=== PATIENT | male | born 1935 | race Caucasian/White ===

== ENCOUNTER 2017-12-06 12:05 | Outpatient (CLI) | payer MEDICARE, MEDICAID, SELFPAY ==
--- NOTE | 2017-12-06 10:09 | DI.RAD_ITS ---
SYMPTOM/DIAGNOSIS: RT HIP AND KNEE PAIN RIGHT HIP: No priors. In the right hip, there is mild joint space narrowing. There is mild periarticular spurring and subchondral sclerosis in the acetabulum and the femoral head. No acute fracture or dislocation is seen. Vascular calcifications are present in the soft tissues. In the left hip, note is made of joint space narrowing and osteophytes arising from the acetabulum and the femoral head. The symphysis pubis appears intact. IMPRESSION: Mild to moderate degenerative changes of the hips bilaterally. RIGHT KNEE: Three views. No priors. There is moderate narrowing of the medial femoral tibial joint space and mild narrowing of the patellofemoral joint. Periarticular spurring is seen involving all three joint compartments. 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 The bones are intact and normally mineralized. Vascular calcifications are seen in the soft tissues which are otherwise unremarkable. There is a small enthesophyte at the superior patella. IMPRESSION: Moderate degenerative changes of the right knee.
== END 2017-12-06 12:25 ==
PROVIDERS: PCP General Practice; Visit Provider Student in an Organized Health Care Education/Training Program
DX: M25.551 Pain in right hip (principal); M25.561 Pain in right knee; M16.0 Bilateral primary osteoarthritis of hip; M17.11 Unilateral primary osteoarthritis, right knee
CPT/HCPCS: 20610; 73562; 99203; 99214; 73502; J1040

== ENCOUNTER → 2018-01-17 09:41 | Outpatient (BNVA) | payer MEDICARE, MEDICAID, SELFPAY | PROVIDERS: PCP General Practice; Visit Provider Student in an Organized Health Care Education/Training Program | DX: M25.551 Pain in right hip (principal); M25.561 Pain in right knee; M17.11 Unilateral primary osteoarthritis, right knee; G56.02 Carpal tunnel syndrome, left upper limb | CPT/HCPCS: 99213; L3908 ==

== ENCOUNTER → 2018-03-14 08:31 | Outpatient (BNVA) | payer MEDICARE, MEDICAID, SELFPAY | PROVIDERS: PCP General Practice; Referring Provider General Practice; Visit Provider Student in an Organized Health Care Education/Training Program | DX: M25.551 Pain in right hip (principal); M25.561 Pain in right knee; M17.11 Unilateral primary osteoarthritis, right knee; M20.021 Boutonniere deformity of right finger(s); M16.0 Bilateral primary osteoarthritis of hip | CPT/HCPCS: 29130; 99214 ==

== ENCOUNTER 2018-05-10 01:39 | Outpatient (CLI) | payer MEDICARE, MEDICAID, SELFPAY ==
--- NOTE | 2018-05-10 10:20 | W.PROCNOTE ---
Date of service: 05/10/18 Time of Service: 10:20 Procedure Note Date of procedure: 05/10/18 Procedure: Right Hip Injection with Fluoroscopic Guidance Surgeon/Proceduralist/Physician: Sheldon Sinclair Procedure Diagnosis: Right Hip Osteoarthritis Procedure Indications: Guy has had persistent pain of the RIGHT hip and groin. Noninvasive measures have been tried. To serve as both diagnostic and therapeutic, an injection under fluoroscopy was recommended. He previously had a left hip injecgtion wtih excellent results. I had discussed the risks of the procedure and the patient elected to proceed. Procedure Description: Guy was greeted in the flouroscopy room. The correct side was identified and the consent was reviewed with the patient and signed. The patient was then placed in the supine position on the fluoroscopy table. The RIGHT hip was then prepped with Chloraprep. The anterolateral injection starting point was identiifed by bony landmarks and fluoroscopy. The skin and soft tissue in the tract of the injection was anesthetized with 1% Lidocaine. A spinal needle was then inserted deep into the hip joint at the level of the lateral femoral neck under fluoroscopic guidance. A small amount of Omnipaque solution was injected to confirm intraarticular placement. Once confirmed, the hip was injected with 6cc of 0.5% Bupivicaine and 80mg of Depo-Medrol. A bandaid was placed on the injection site. The patient tolerated the procedure well and noted improvement in pre-injection pain.
--- NOTE | 2018-05-10 10:40 | DI.RAD_ITS ---
SYMPTOM/DIAGNOSIS: RT HIP INJECTION, BILATERAL HIP JOINT ARTHRITIS M16.0 RIGHT HIP INJECTION: Fluoroscopy Time: 7.3 Fluoroscopy was utilized by Dr. Sniclair during the performance of a right hip injection. Please refer to the procedure report for complete details.
[2018-05-10] MEDS: Omnipaque 300 MG/ML 10 ML BTL IJ (11:23)
[2018-05-10] MEDS: Bupivacaine 0.5% Pres-Free 10 ML VIAL 6 ML IJ (11:25)
[2018-05-10] MEDS: methylPREDNISolone ACETATE 80 MG/ML VIAL IM (11:25)
== END 2018-05-10 01:59 ==
PROVIDERS: PCP General Practice; Visit Provider Student in an Organized Health Care Education/Training Program
DX: M25.551 Pain in right hip (principal); M16.0 Bilateral primary osteoarthritis of hip
CPT/HCPCS: 20610; 77002; J1040

== ENCOUNTER 2018-08-08 09:53 | Outpatient (CLI) | payer MEDICARE, MEDICAID, SELFPAY | END 2018-08-08 10:13 | PROVIDERS: PCP General Practice; Visit Provider Student in an Organized Health Care Education/Training Program | DX: M17.11 Unilateral primary osteoarthritis, right knee (principal); M16.0 Bilateral primary osteoarthritis of hip; M48.061 Spinal stenosis, lumbar region without neurogenic claudication; M51.36 Other intervertebral disc degeneration, lumbar region | CPT/HCPCS: 99214 ==

== ENCOUNTER 2018-08-08 10:08 | Outpatient (CLI) | payer MEDICARE, MEDICAID, SELFPAY ==
--- NOTE | 2018-08-08 10:06 | DI.RAD_ITS ---
SYMPTOMS/DIAGNOSIS: LT MESFIN PLANNING, EVAL LOW BACK PAIN, LIMITED MOTION, ? STENOSIS/DDD LEFT HIP: Single view. Comparison 12/06/17. There is mild narrowing of the left hip joint space. Osteophytes are seen arising from the acetabulum and the femoral head. The bones appear normally mineralized. Vascular calcifications are seen in the soft tissues. IMPRESSION: Osteoarthritis of the left hip. LUMBAR SPINE: AP and lateral views. There is straightening of the lumbar spine. There is disc space narrowing at L 4 - 5 and L 5 - S 1. Endplate osteophytes are present throughout the lumbar spine. There are degenerative changes of the facet joints most marked from L 3 - 4 through L 5 - S 1. No acute fractures or subluxations are seen. Vascular calcifications are present. 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
== END 2018-08-08 10:28 ==
PROVIDERS: PCP General Practice; Referring Provider General Practice; Visit Provider Student in an Organized Health Care Education/Training Program
DX: M16.12 Unilateral primary osteoarthritis, left hip (principal); M54.5 Low back pain; M51.16 Intervertebral disc disorders with radiculopathy, lumbar region; M17.11 Unilateral primary osteoarthritis, right knee; M16.0 Bilateral primary osteoarthritis of hip; M48.061 Spinal stenosis, lumbar region without neurogenic claudication; M51.36 Other intervertebral disc degeneration, lumbar region
CPT/HCPCS: 99214; 72100; 73501

== ENCOUNTER → 2019-01-07 08:09 | Outpatient (BNVA) | payer MEDICARE, MEDICAID, SELFPAY | PROVIDERS: PCP General Practice; Referring Provider General Practice; Visit Provider Student in an Organized Health Care Education/Training Program | DX: M16.12 Unilateral primary osteoarthritis, left hip (principal) | CPT/HCPCS: 99213 ==

== ENCOUNTER 2019-01-10 13:56 | Outpatient (CLI) | payer MEDICARE, MEDICAID, SELFPAY ==
[2019-01-10 14:25] LABS: Bilirubin Negative (Negative); Blood Trace-intact (Negative); Clarity Clear (Clear); Glucose Negative (Negative); Ketones Negative (Negative); Leukocyte Esterase Negative (Negative); Nitrite Negative (Negative); Urobilinogen 0.2 EU/dL (Up TO 0.2); pH 5.5 (5-8)
[2019-01-10 14:38] LABS: Bacteria Negative HPF (Negative); C & S Indicated? No; Crystals Negative HPF (Negative); Epithelial Cells Negative HPF (Negative); Mucus Negative (Negative); RBC 0-2 HPF (0-2); WBC Negative HPF (0-5)
[2019-01-10 15:41] LABS: Albumin 4.1 g/dL (3.4-5.0); Anion Gap 8.8 mmol/L (3-11); CO2 28.2 mmol/L (21.0-32.0); CREATININE 0.91 mg/dL (0.70-1.30); Chloride 104 mmol/L (98-107); Glucose 110 mg/dL (70-100); NT-proBNP 1667 pg/mL; Potassium 4.3 mmol/L (3.5-5.1); Sodium 141 mmol/L (136-145); TSH 2.22 uIU/mL (0.36-3.74)
== END 2019-01-10 14:16 ==
PROVIDERS: PCP General Practice; Visit Provider General Practice
DX: R60.0 Localized edema (principal); R35.0 Frequency of micturition; I50.9 Heart failure, unspecified
CPT/HCPCS: 36415; 80051; 82947; 81003; 81015; 82040; 82565; 83735; 83880; 84443

== ENCOUNTER 2019-01-30 00:53 | Outpatient (CLI) | payer MEDICARE, MEDICAID, SELFPAY ==
--- NOTE | 2019-01-30 14:00 | DI.US_ITS ---
APPROVED REPORT EXAM: Comprehensive 2D, Doppler, and color-flow Echocardiogram Patient Location: Out-Patient Vice President Of Recruiting: Gay Davila [facility] ([place]) Rhythm: Atrial Fibrillation Tachycardia Indications: new onset afib. i48.91 Conclusion Left Ventricle : The left ventricle is normal size. Borderline concentric left ventricular hypertroph y. Left ventricular systolic function is mildly decreased. The irregular rhythm makes wall motion ass essment difficult but there appears to be global hypokinesis of the left ventricle. LVEF is estimated to be 45-50%. Diastolic function is indeterminate. Right Ventricle : The right ventricle is normal size. The right ventricular systolic function is low normal. Atria : Left atrium is mildly dilated. Right atrium is moderately dilated. Aortic Valve : Aortic valve is trileaflet. The Aortic valve is sclerotic. Mild aortic regurgitation. There is no aortic valvular stenosis. Mitral Valve : Mitral valve leaflets are mildly thickened. No evidence of mitral valve stenosis. Mild mitral regurgitation. Tricuspid Valve : The tricuspid valve leaflets are thickened , but open well. Moderate tricuspid regu rgitation. Great Vessels : IVC is normal in size and collapses >50% with inspiration. Estimated RVSP is 26-30 m mHg. There is no prior echocardiogram available for comparison. Wall motion Left Ventricle The left ventricle is normal size. Left ventricular systolic function is mildly decreased. Borderline concentric left ventricular hypertrophy. The irregular rhythm makes wall motion assessment difficult but there appears to be global hypokinesis of the left ventricle. Diastolic function is indeterminat e. LVEF is estimated to be 45-50%. Right Ventricle The right ventricle is normal size. The right ventricular systolic function is low normal. Right vent ricle is mildly hypertrophied. Atria Left atrium is mildly dilated. Right atrium is moderately dilated. Aortic Valve Aortic valve is trileaflet. The Aortic valve is sclerotic. There is no aortic valvular stenosis. Mild aortic regurgitation. Mitral Valve Mitral valve leaflets are mildly thickened. No evidence of mitral valve stenosis. Mild mitral regurgi tation. Tricuspid Valve The tricuspid valve leaflets are thickened , but open well. Moderate tricuspid regurgitation. Pulmonic Valve Pulmonic valve is not well visualized. Mild pulmonic regurgitation. Great Vessels The aortic root is normal in size. The ascending aorta is mildly dilated (3.85cm). IVC is normal in s ize and collapses >50% with inspiration. Estimated RVSP is 26-30 mmHg. Pericardium There is no pericardial effusion. 2D Dimensions IVSd 1.10 cm M: 0.6-1.2 LV EDV A2C 74.30 mL PWd 1.15 cm M: 0.6 - 1.2 LV EDV A4C 51.30 mL LVDd 4.50 cm M: 4.2 - 5.8 LA Volume Index A2C 42.51 mL/m2 LVDs 3.60 cm M: 2.5 - 4.0 LA Volume Index A4C 40.84 mL/m2 Aortic Root 3.50 cm M: 3.1 - 3.7 LA Volume Index Biplane 42.95 mL/m2 RVID Base (AP4) 3.20 cm (M/F) 2.5-4.1 LA Area A4C 22.18 cm2 RA Area A4C 24.57 cm2 LA Area A2C 23.33 cm2 LVOT 2.00 cm (M/F) 1.5-2.5 EF AP4 50.68 % Ascending Aorta 3.85 cm M: 2.6 - 3.4 EF AP2 38.63 % LVEF (Teich) 40.80 % EF BP 44.18 % LVEF (Lyon's) 44.18 % M: 52 - 72 LV Volume 50.29 mL M: 62 - 150 LV Volume Index 27.33 mL/m2 M: 34 - 74 FS 19.80 % LV Diastology MED E' 0.08 (>0.07 m/s) LV E/e MED 12.50 (<14) LAT E' 0.09 (>0.1 m/s) LV E/e LAT 10.50 (<14) Aortic Valve LVOT Area 3.15 cm2 LVOT Peak Gerard. 0.70 m/s LVOT Mean Gerard. 0.55 m/s LVOT Peak Gr. 2.05 mmHg SANTOS Vmax Index 1.15 cm2/m2 LVOT Mean Gr. 1.30 mmHg LVOT VTI 0.15 m SANTOS Mean Gerard. Index 1.13 cm2/m2 AoV Peak Gerard. 1.07 (0.5-1.3 m/s) AoV Mean Gerard. 0.83 m/s AO Peak GR. 4.61 mmHg AO Mean GR. 2.92 (<5 mmHg) VTI Ratio 0.71 SANTOS (VTI) 2.23 (2.5-4.5 cm2) SANTOS (VTI) Index 1.20 cm/m2 Mitral Valve MV E Max Gerard. 0.94 (0.4-1.3 m/s) MV Decel. Time 121.70 (160-240 msec) MV PHT 35.31 msec MVA PHT 6.20 cm2 Tricuspid Valve TR P. Velocity 2.56 m/s TV Regurg Vmax 2.56 m/s RAP Estimate 3.00 mmHg RVSP 29.00 mmHg TR P. Gradient 26.10 mmHg
== END 2019-01-30 01:13 ==
PROVIDERS: PCP Nurse Practitioner Family; Visit Provider General Practice
DX: I48.91 Unspecified atrial fibrillation (principal); I50.9 Heart failure, unspecified; I50.1 Left ventricular failure, unspecified; R60.0 Localized edema; I51.7 Cardiomegaly
CPT/HCPCS: 93306

== ENCOUNTER 2019-02-07 11:56 | Outpatient (CLI) | payer MEDICARE, MEDICAID, SELFPAY ==
[2019-02-07 13:49] LABS: Anion Gap 7.9 mmol/L (3-11); BUN 23 mg/dL (7-18); CO2 31.1 mmol/L (21.0-32.0); CREATININE 1.09 mg/dL (0.70-1.30); Chloride 103 mmol/L (98-107); Potassium 4.6 mmol/L (3.5-5.1); Sodium 142 mmol/L (136-145)
== END 2019-02-07 12:16 ==
PROVIDERS: PCP General Practice; Visit Provider General Practice
DX: I50.9 Heart failure, unspecified (principal)
CPT/HCPCS: 36415; 80051; 84520; 82565

== ENCOUNTER 2019-04-02 12:57 | Outpatient (REF) | payer MEDICARE, MEDICAID, SELFPAY ==
--- NOTE | 2019-04-02 10:15 | PAPNONF_PTH ---
PATIENT: Siddharth Valle LOC: [facility]#:[id number] AGE/SX: 83/M ROOM: RE04/02/[address]: Maritza Vergara : 1935 BED: DIS: 04/02/2019 SPEC #: [id number] RECD: 04/03/19 12:28 STATUS: DEION REQ #: [id number] JAHAIRA: 04/02/19 10:[address]: Maritza Vergara DEPT: [facility] Cytology RECD BY: Amber Vasquez Tissues: 1 - BODY FLUID CYTO(SPUTUM/URINE)[facility] Procedures: BODY FLUID CYTO(URINE/SPUTUM) Comments: [id number] (TOTAL VOLUME = 70 ml's) (35 ml's URINE & 35 ml's CYTOLYT ADDED IN 2 CONTAINERS)
[2019-04-03 12:35] LABS: PSA, Screening 0.5 ng/mL (0.0-6.5)
== END 2019-04-02 13:17 ==
LOC: NCHCN 12:57
PROVIDERS: PCP Nurse Practitioner Family; Visit Provider Nurse Practitioner Family
DX: R31.9 Hematuria, unspecified (principal); R82.998 Other abnormal findings in urine; R32 Unspecified urinary incontinence; Z12.5 Encounter for screening for malignant neoplasm of prostate
CPT/HCPCS: 84153; 88104

== ENCOUNTER 2019-10-18 18:17 | Outpatient (REF) | payer MEDICARE, MEDICAID, SELFPAY ==
[2019-10-18 23:37] LABS: Anion Gap 10.8 mmol/L (3-11); BUN 14 mg/dL (7-18); CO2 27.2 mmol/L (21.0-32.0); CREATININE 0.99 mg/dL (0.70-1.30); Calcium 8.7 mg/dL (8.5-10.1); Chloride 101 mmol/L (98-107); Glucose 142 mg/dL (74-106); NT-proBNP 1306 pg/mL (<300); Potassium 4.2 mmol/L (3.5-5.1); Sodium 139 mmol/L (136-145)
== END 2019-10-18 18:37 ==
LOC: NCHCN 18:17
PROVIDERS: PCP Nurse Practitioner Family; Visit Provider Physician Assistant
DX: I50.9 Heart failure, unspecified (principal); I48.91 Unspecified atrial fibrillation
CPT/HCPCS: 80048; 85027; 83880

== ENCOUNTER 2020-12-08 18:52 | Outpatient (REF) | payer MEDICARE, MEDICAID, SELFPAY ==
[2020-12-08 18:15] LABS: HCT 40.2 % (40.0-50.0); HGB 13.1 g/dL (13.5-17.5); MCH 31.3 pg (27.0-33.0); MCHC 32.6 % (32.0-36.0); MCV 95.9 fL (80-95); MPV 9.1 fL (8.0-11.0); Platelet Count 212 10^3/uL (130-400); RBC 4.19 10^6/uL (4.36-5.78); RDW 12.5 % (11.8-14.1); RDW-SD 44.1 fL; WBC 6.92 10^3/uL (4.4-10.8)
[2020-12-08 18:34] LABS: Anion Gap 9.8 mmol/L (3-11); BUN 10 mg/dL (7-18); CO2 28.2 mmol/L (21.0-32.0); CREATININE 0.8 mg/dL (0.70-1.30); Calcium 8.6 mg/dL (8.5-10.1); Chloride 104 mmol/L (98-107); Glucose 137 mg/dL (74-106); Potassium 3.9 mmol/L (3.5-5.1); Sodium 142 mmol/L (136-145)
== END 2020-12-08 18:53 | disposition home or self-care (01) ==
LOC: NCHCN 18:52
PROVIDERS: PCP Nurse Practitioner Family; Visit Provider Physician Assistant
DX: I48.91 Unspecified atrial fibrillation (principal)
CPT/HCPCS: 80048; 85027

== ENCOUNTER 2022-01-31 13:50 | Outpatient (REF) | payer MEDICARE, MEDICAID, SELFPAY ==
[2022-01-31 14:59] LABS: HCT 40.2 % (40.0-50.0); MCH 30.4 pg (27.0-33.0); MCHC 32.3 % (32.0-36.0); MCV 94 fL (80-95); MPV 9.1 fL (8.0-11.0); Platelet Count 208 10^3/uL (130-400); RBC 4.27 10^6/uL (4.36-5.78); RDW 12.8 % (11.8-14.1); RDW-SD 44.5 fL; WBC 7.28 10^3/uL (4.4-10.8)
[2022-01-31 15:22] LABS: Anion Gap 11.7 mmol/L (3-11); BUN 15 mg/dL (7-18); CO2 25.3 mmol/L (21.0-32.0); CREATININE 0.8 mg/dL (0.70-1.30); Calcium 8.9 mg/dL (8.5-10.1); Calculated LDL 136 mg/dL (<100); Chloride 103 mmol/L (98-107); Cholesterol 208 mg/dL (<200); Estimated GFR 87.27 (mL/min/1.73m2); Glucose 120 mg/dL (74-106); HDL Cholesterol 40 mg/dL (40-60); Potassium 4.1 mmol/L (3.5-5.1); Sodium 140 mmol/L (136-145); Triglyceride 163 mg/dL (<150)
[2022-01-31 15:58] LABS: Hemoglobin A1C 6.3 % (<5.7)
== END 2022-01-31 13:51 | disposition home or self-care (01) ==
LOC: NCHCN 13:50
PROVIDERS: PCP Nurse Practitioner Family; Visit Provider Physician Assistant
DX: I50.9 Heart failure, unspecified (principal); I48.91 Unspecified atrial fibrillation
CPT/HCPCS: 80048; 80061; 85027; 83036

== ENCOUNTER → 2022-08-09 07:58 | Outpatient (BNVA) | payer MEDICARE, MEDICAID, SELFPAY | PROVIDERS: PCP Nurse Practitioner Family; Referring Provider Nurse Practitioner Family; Visit Provider Surgery | DX: L98.9 Disorder of the skin and subcutaneous tissue, unspecified (principal) | CPT/HCPCS: 99203 ==

== ENCOUNTER → 2022-08-22 10:01 | Outpatient (BNVA) | payer MEDICARE, MEDICAID, SELFPAY | PROVIDERS: PCP Physician Assistant; Referring Provider Nurse Practitioner Family; Visit Provider Surgery | DX: C44.91 Basal cell carcinoma of skin, unspecified (principal) | CPT/HCPCS: 11603; 99213 ==

== ENCOUNTER 2022-08-22 10:47 | Outpatient (REF) | payer MEDICARE, MEDICAID, SELFPAY ==
--- NOTE | 2022-08-22 11:00 | SKI_PTH ---
PATIENT: Siddharth Valle LOC: [facility] U#:[id number] AGE/SX: 86/M ROOM: RE08/22/[address]: Mirela Lafleur MD : 1935 BED: DIS: 08/22/2022 SPEC #: [id number] RECD: 08/22/22 12:57 STATUS: DEION REQ #: [id number] JAHAIRA: 08/22/22 11:[address]: Mirela Lafleur DEPT: Surgical Specimen RECD BY: Amber Vasquez ENTERED: 08/22/22 12:59 SP TYPE: WICHO PANDA DR: Jayce Johnson Tissues: 1 - SKIN BIOPSY(SHAVE/PUNCH) Procedures: SKIN LEVEL 4 Comments: [id number]
== END 2022-08-22 10:48 | disposition home or self-care (01) ==
LOC: LBN 10:47
PROVIDERS: PCP Physician Assistant; Visit Provider Surgery
DX: L98.8 Other specified disorders of the skin and subcutaneous tissue (principal)
CPT/HCPCS: 88305

== ENCOUNTER → 2022-09-02 09:52 | Outpatient (BNVA) | payer MEDICARE, MEDICAID, SELFPAY | PROVIDERS: PCP Physician Assistant; Referring Provider Physician Assistant; Visit Provider Surgery | DX: Z48.02 Encounter for removal of sutures (principal) ==

== ENCOUNTER → 2022-09-09 12:37 | Outpatient (BNVA) | payer MEDICARE, MEDICAID, SELFPAY | PROVIDERS: PCP Physician Assistant; Referring Provider Physician Assistant; Visit Provider Physical Therapy Assistant | DX: L98.9 Disorder of the skin and subcutaneous tissue, unspecified (principal) | CPT/HCPCS: 99212 ==

== ENCOUNTER 2023-01-24 18:44 | Outpatient (REF) | payer MEDICARE, MEDICAID, SELFPAY ==
[2023-01-24 15:17] LABS: HCT 40.4 % (40.0-50.0); MCH 30.8 pg (27.0-33.0); MCHC 32.2 % (32.0-36.0); MCV 96 fL (80-95); MPV 8.7 fL (8.0-11.0); Platelet Count 195 10^3/uL (130-400); RBC 4.22 10^6/uL (4.36-5.78); RDW 12.5 % (11.8-14.1); RDW-SD 43.7 fL; WBC 6.66 10^3/uL (4.4-10.8)
[2023-01-24 15:22] LABS: Anion Gap 7.5 mmol/L (3-11); BUN 18 mg/dL (7-18); CO2 29.5 mmol/L (21.0-32.0); CREATININE 0.8 mg/dL (0.70-1.30); Calcium 9.3 mg/dL (8.5-10.1); Chloride 103 mmol/L (98-107); Estimated GFR 86.73 (mL/min/1.73m2); Glucose 124 mg/dL (74-106); Potassium 4.4 mmol/L (3.5-5.1); Sodium 140 mmol/L (136-145)
== END 2023-01-24 18:45 | disposition home or self-care (01) ==
LOC: NCHCN 18:44
PROVIDERS: PCP Physician Assistant; Visit Provider Physician Assistant
DX: I48.91 Unspecified atrial fibrillation (principal)
CPT/HCPCS: 80048; 85027

== ENCOUNTER → 2023-04-10 01:54 | Outpatient (CLI) | payer MEDICARE, MEDICAID, SELFPAY ==
--- NOTE | 2023-04-10 14:30 | DI.US_ITS ---
APPROVED REPORT EXAM: Comprehensive 2D, Doppler, and color-flow Echocardiogram Patient Location: Out-Patient Imaging Scheduler: Geovani Guerrier RDCS ([place]) Indications: afib Other Information Technically limited study due to irregular heart rhythm. Conclusion Normal left ventricular wall thickness and chamber size. Ejection fraction is 50 to 55%. Patient is in atrial fibrillation with an uncontrolled rate and significant beat to beat variation which confou nds assessment of ventricular function Normal right ventricular size and function Both atria are moderately enlarged Aortic valve is trileaflet mildly sclerotic with mild regurgitation Normal mitral valve with mild regurgitation Normal tricuspid valve with moderate regurgitation. Estimated right ventricular pressure is 30 mm Hg Mildly dilated ascending aorta 3.74 cm Wall motion Left Ventricle The left ventricle is normal size. Left ventricular systolic function is borderline. There is normal left ventricular wall thickness. There is normal LV segmental wall motion. There is no ventricular se ptal defect visualized. LVEF is 50-55% Right Ventricle The right ventricle is normal size. Right ventricular systolic function is grossly normal. Atria Left atrium is moderately dilated. Right atrium is moderately dilated. The interatrial septum is inta ct with no evidence for an atrial septal defect. Aortic Valve The aortic valve trileaflet and mildly sclerotic. There is no aortic valvular stenosis. Mild aortic r egurgitation. Mitral Valve The mitral valve is normal in structure. No evidence of mitral valve stenosis. Mild mitral regurgitat ion. Tricuspid Valve The tricuspid valve is normal in structure. There is no tricuspid valve stenosis. Moderate tricuspid regurgitation. The RVSP is 30.2 mmHg. Pulmonic Valve The pulmonary valve is normal in structure. There is no pulmonic valvular stenosis. There is no pulmo lex valvular regurgitation. Great Vessels The aortic root is normal in size. The ascending aorta is mildly dilated. Aortic arch is not well vis ualized. IVC is normal in size and collapses >50% with inspiration. Pericardium Trace pericardial effusion. 2D Dimensions IVSD d PLAX 1.17 cm M: 0.6-1.2 Ao Root d 3.17 cm M: 3.1 - 3.7 LVPW d PLAX 1.25 cm M: 0.6 - 1.2 Ao Asc Diam d 3.74 cm M: 2.6 - 3.4 LVID d PLAX 3.93 cm M: 4.2 - 5.8 LVDs 3.12 cm M: 2.5 - 4.0 LV EF Teichholz 42.5 % FS 20.55 % LV EDV (Teich) 67.0 mL LV ESV (Teich) 38.5 mL Stroke Vol Index (Teich) 17.71 Auto EF LV EDV A4C 67.4 mL LV EDV A2C 81.3 mL LV EDV BP 74.1 mL LV ESV A4C 39.1 mL LV ESV A2C 44.4 mL LV ESV BP 41.6 mL LVEF(%) A4C 42.0 % LVEF(%) A2C 45.4 % LVEF(%) BP 43.9 % LV SV A4C 28.3 ml LV SV A2C 36.9 ml LV SV BP 32.6 ml LV CO A4C 3.5 L/min LV CO A2C 4.8 L/min LV CO BP 4.1 L/min HR A4C 124.15 BPM HR A2C 129.50 BPM LV EDV Index (BP) LA Volume LA Length A4C 5.0 cm LA Length A2C 5.4 cm LA Area A4C s 15.06 cm2 LA Area A2C s 15.62 cm2 LA Vol A4C A-L 38.16 mL LA Vol A2C A-L 38.36 mL LA Vol Biplane A-L 39.6 mL LA Vol/BSA A4C A-L LA Vol/BSA A2C A-L LA Vol/BSA BP A-L 24.6 mL/m2 LA Vol A4C MOD 38.0 mL LA Vol A2C MOD 37.9 mL LA Vol BP MOD 39.1 mL RA Volume RA Area A4C 19.2 cm2 RA ESV A4C (A-L) 52.0mL RA Vol/BSA A4C A-L RA Length A4C 6.0 cm RA ESV A4C (MOD) 50.5mL LV Diastology MV E Vmax 0.87 (0.4-1.3 m/s) MV A Vmax 0.00 (0.4-1.3 m/s) E/A Ratio 0.0 Aortic Valve AoV Vmax 0.84 m/s LVOT Vmax 0.77 m/s AoV Peak Grad 2.8 mmHg LVOT Peak Grad 2.3 mmHg AoV Area (Vmax) 2.04 cm2 LVOT VTI 0.146 m AoV VTI 0.116 m LVOT Mean Grad 1.2 mmHg AoV Mean Gerard. 0.59 m/s LVOT SV 32.47 mL AoV Mean Grad 1.5 mmHg LVOT Diam s 1.65 cm AoV Area (VTI) 2.80 cm2 Velocity Ratio 0.92 Mitral Valve MV DT 128 (160-240 msec) Tricuspid Valve RA Pressure 3.00 mmHg TR Vmax 2.61 m/s TR Peak Grad 27.2 mmHg RVSP (TR) 30.2 mmHg
== END ==
PROVIDERS: PCP Physician Assistant; Visit Provider Physician Assistant
DX: I48.0 Paroxysmal atrial fibrillation (principal)
CPT/HCPCS: 93308; 93306